=== PATIENT | female | born 1955 | race African-American/Black ===

== ENCOUNTER 2016-12-29 05:56 | Day surgery (SDC) | payer OTHER ==
[2016-12-28 12:36] VITALS: BMI 25.6
--- NOTE | 2016-12-29 05:50 | HP ---
DATE OF ADMISSION: 12/29/2016 HISTORY OF PRESENT ILLNESS: This is a 61-year-old black female with previously diagnosed esophageal stricture, status post dilation in the past. She has a very tight fibrotic stricture in the upper esophagus. Dilation was very difficult and had to be dilated gently. Last dilation was done in 06/2016. She did well for a while but now she has recurrent dysphagia. The dysphagia occurs mostly to bread and meat. The patient comes in for EGD and dilatation today. ALLERGIES: None. MEDICAL ILLNESSES: 1. Hypertension. 2. Hyperlipidemia. 3. Eczema. 4. History of lupus which is mild . SOCIAL HISTORY: The patient does not smoke or drink alcohol. PHYSICAL EXAMINATION: VITAL SIGNS: Pulse is 70, blood pressure 130/70. HEENT: Conjunctivae are clear. CARDIOVASCULAR: First and second heart sounds are normal. LUNGS: Clear to auscultation. ABDOMEN: Soft to palpate. No organomegaly. No tenderness. No masses. ADMITTING DIAGNOSES: Dysphagia, previously diagnosed esophageal stricture, status post dilation. PLAN: EGD and dilation. MTDD
[2016-12-29] MEDS ORDERED: Ondansetron HCl/PF 4 MG/2 ML Vial ONE (09:23)
--- NOTE | 2016-12-29 11:32 | OP ---
DATE OF PROCEDURE: 12/29/2016 SURGEON: Chapin Joyce M.D. OPERATIVE PROCEDURE: 1. Esophagogastroduodenoscopy with biopsy. 2. Esophageal dilation over guidewire Savary sizes 30, 33, and 36 Frisian. PREOPERATIVE DIAGNOSES: Dysphagia, esophageal stricture. POSTOPERATIVE DIAGNOSES: 1. A very tight ring-like stricture at the upper esophagus just below the upper esophageal sphincter. 2. Another ring can be visualized through this ring over the distal esophagus. 3. One centimeter size polypoid lesion at the GE junction, lower esophagus. PROCEDURE IN DETAIL: The patient was placed on her left lateral position and was given sedation by the Anesthesia Department. A Pentax video gastroscope under direct vision was passed down the oropharynx, past the upper esophageal sphincter into the upper esophagus. The patient has a very tight ring-like stricture, intact mucosa, just below the upper esophageal sphincter. The ring is very tight and the scope could not be advanced past the ring. However, I could see another distal esophageal ring distally. A Savary guidewire was placed into the stomach under endoscopic control. The scope removed. Over the guidewire, Savary dilators sizes 30, 33, and 36 passed with mild resistance. Post-dilation, the guidewire was removed. The scope was advanced back into the upper esophagus and gently advanced into the stomach. The mucosa showed a tear in the upper esophagus and also over the lower esophagus. There was mild oozing noted. At the GE junction, the patient had a 1 cm size polypoid lesion which was biopsied. The fundus, cardia, gastric body, gastric antrum, no pathology seen. The duodenal bulb, no pathology seen. The stomach was decompressed. The scope was removed and a careful examination of the esophagus without any other problems except for mucosa dilated 2 different times. DISCHARGE PLANNING: This is a 61-year-old female with dysphagia, past history of esophageal stricture. She came in for EGD and dilation. The patient had a very tight stricture of the upper esophagus and also lower esophagus. She underwent dilation. She was found to have a 1 cm size polypoid lesion which were biopsied. RECOMMENDATIONS: 1. The patient advised to stay on a clear liquid diet until tomorrow. 2. Advance diet to full liquid, can have soft diet over the weekend 3. Omeprazole 40 mg a day. 4. The patient was advised to call me if she develops any chest pain, hematochezia, or melena or fever. SHELBI
== END 2016-12-29 06:42 | disposition home or self-care (01) ==
LOC: SDC 05:56
PROVIDERS: ATTEND Internal Medicine Gastroenterology
PROC: 0D758ZZ Dilation of Esophagus, Via Natural or Artificial Opening Endoscopic (ICD-10-PCS; principal; 2016-12-29)
DX: K29.50 Unspecified chronic gastritis without bleeding (principal); R13.10 Dysphagia, unspecified; I10 Essential (primary) hypertension; E78.5 Hyperlipidemia, unspecified; M32.9 Systemic lupus erythematosus, unspecified
CPT/HCPCS: 88305; 88312; 88313; J2405

== ENCOUNTER 2017-01-26 06:41 | Day surgery (SDC) | payer OTHER ==
[2017-01-25 10:42] VITALS: BMI 25.6
--- NOTE | 2017-01-26 04:04 | HP ---
HISTORY OF PRESENT ILLNESS: This is a 61-year-old black female with history of esophageal stricture, status post dilation. The patient had been having difficulty swallowing over the last year or so. The patient had undergone 3 dilatations over the last 12 months, the last one about 2 weeks ago. The patient has a very tight upper esophageal stricture and also over the lower esophageal stricture. S he also is vomiting. The stricture is very tight and very difficult to dilate. The patient underwen t dilation couple of weeks ago and also dilated up to 36 cm in diameter, dysphagia is improved. Amandeep gar, because of tight esophageal stricture, she was advised to have a repeat EGD. ALLERGIES: None. MEDICAL ILLNESSES: 1. Hypertension. 2. Hyperlipidemia. 3. History of lupus. 4. Esophageal stricture for anxiety. SOCIAL HISTORY: The patient does not smoke or drink alcohol. PHYSICAL EXAMINATION: GENERAL: Patient is thin built, appears comfortable. VITAL SIGNS: Pulse is 70, blood pressure is 130/70. HEENT: Conjunctivae are clear. CARDIOVASCULAR: First and second heart sounds normal. LUNGS: Clear to auscultation. ABDOMEN: Soft to palpate. No organomegaly. No tenderness. No masses. Bowel sounds normal. EXTREMITIES: Reveal no edema. ADMITTING DIAGNOSIS: A 61-year-old black female with dysphagia, esophageal stricture. This is a rin y tight and difficult to dilate. She had no dilation on 12/29/2016 and was dilated up to 36 cm in [facility]. The patient was brought in today for repeat EGD and dilation.
--- NOTE | 2017-01-26 10:57 | RAD ---
SINGLE CONTRAST ESOPHOGRAM Indication: Status post upper endoscopy with dilatation. FINDINGS: There is appropriate passage of radiopaque contrast through the esophagus into the stomach without ev idence of abnormal leakage. No abnormal dilatation of the esophagus. IMPRESSION: No evidence of esophageal leak. POS: CHRIS
[2017-01-26] MEDS ORDERED: Lidocaine 1% PF 5 ML VIAL ONE (15:48)
[2017-01-26] MEDS ORDERED: Propofol 200 MG/20 ML VIAL ONE (15:48)
--- NOTE | 2017-01-26 16:01 | OP ---
DATE OF PROCEDURE: 01/26/2017 SURGEON: Chapin Joyce M.D. OPERATIVE PROCEDURES: 1. Esophagogastroduodenoscopy. 2. Esophageal dilation with Savary dilators over the guidewire to size 42 Slovak in diameter. PREOPERATIVE DIAGNOSES: Dysphagia, esophageal stricture. POSTOPERATIVE DIAGNOSES: Dysphagia, esophageal stricture. PROCEDURE IN DETAIL: The patient was placed on the left lateral position and was given sedation by Anesthesia Department. A Pentax video gastroscope under direct vision was passed down the oropharynx, past the GE junction, into the stomach. The patient's esophagus appears to be more open than the last time. Her last dilation was done approximately a month ago. The scope could not be advanced into the stomach. At this time, I was able to traverse esophagus with mild resistance into the stomach. The patient has multiple ring-like esophageal strictures. There was upper esophageal ring and there was also midesophagus and lower esophagus. The mucosa appears intact. A Savary guidewire was placed into the stomach under endoscopic control. As the patient had a previous dilation up to 36 Slovak in diameter I decided to start with a 36 Slovak and go up to 42 Slovak. The 36, 38 and 42 Slovak Savary dilator was passed over the wire with mild resistance. The scope was advanced back in to the stomach. Post-dilation, the scope was advanced back into the stomach. There was a mucosal tear at the upper esophagus and distal esophagus and mid esophagus. There was some mild oozing of blood. There was blood pooling in the fundus and cardia. This was suctioned out. The gastric body, gastric antrum, and duodenum, no pathology. The scope was carefully withdrawn back into the esophagus. Irrigation and suctioning out do not show any active bleeding, but there is mild oozing of blood from multiple levels. The stomach was decompressed and the scope removed. DISCHARGE PLANNING: This is a 61-year-old -Thai female with esophageal stricture, status post multiple dilatations. The patient has had multiple dilations over the last year also. The patient's most recent dilation was done in 12/2016. During the last examination, the dilation was done up to 36 Slovak in diameter. . Post-dilation, there was mild oozing of blood noted. There were no complications noted. DISCHARGE RECOMMENDATIONS: 1. The patient advised a clear liquid diet for the next 24 hours. 2. The patient advised to call me if she develops any chest discomfort, fever, hematemesis, or melena. 3. May start mechanical soft diet tomorrow and advance diet slowly as tolerated. 4. Come back to the clinic in 2 weeks. SHELBI
[2017-01-26] MEDS ORDERED: MD-Gastroview 120 ML BOT ONE (17:36)
== END 2017-01-26 10:54 ==
LOC: SDC 06:41
PROVIDERS: ATTEND Internal Medicine Gastroenterology
PROC: 0D758ZZ Dilation of Esophagus, Via Natural or Artificial Opening Endoscopic (ICD-10-PCS; principal; 2017-01-26)
DX: R13.10 Dysphagia, unspecified (principal); K22.2 Esophageal obstruction; I10 Essential (primary) hypertension; M32.9 Systemic lupus erythematosus, unspecified; Z79.82 Long term (current) use of aspirin; Z79.899 Other long term (current) drug therapy; Z90.710 Acquired absence of both cervix and uterus; Z98.890 Other specified postprocedural states
CPT/HCPCS: 74220; J2001; J2704

== ENCOUNTER 2017-03-01 13:40 | Inpatient (IN) | payer OTHER ==
[2017-03-01] MEDS ORDERED: Ondansetron ODT 4 MG TAB PO PRN (17:33)
[2017-03-01] MEDS ORDERED: Ondansetron HCl/PF 4 MG/2 ML Vial IVP PRN (17:33)
[2017-03-01] MEDS ORDERED: Acetaminophen 325 MG TAB PO PRN (17:33)
[2017-03-01] MEDS ORDERED: Senokot 8.6 MG TAB PO PRN (17:33)
[2017-03-01] MEDS ORDERED: hydrALAZINE 20 MG/ML VIAL SLOW IVP PRN (17:36)
[2017-03-01 18:29] VITALS: BMI 25.5
[2017-03-01] MEDS ORDERED: cefTRIAXone\\ROCEPHIN 1 GM in Sodium Chloride 0.9% 100 ML IVPB SCH (19:15)
--- NOTE | 2017-03-01 19:31 | HP ---
DATE OF ADMISSION: 03/01/2017 PRIMARY CARE PHYSICIAN: Greer Moody M.D. PRIMARY SENIOR IT ARCHITECT: Faizan Craig M.D. CHIEF COMPLAINT: Slurring of speech of 2 days duration. HISTORY OF PRESENT ILLNESS: Patient is a 61-year-old -Maldivian female with hypertension, rheu matoid arthritis, currently on 81 mg aspirin, presented to the emergency room at [facility] with ab ove complaints. Over the last two days, the patient developed slurring of speech that has been progressively getting worse. She did not seek medical attention. She had some numbness in the perioral area that has more or less resolved. No headache, double vision, blurring of vision, facial asymmetry, weakness, numbn ess of any of her extremities reported. She denies any chest pain, palpitations, headache or syncope . No recent immobilization, travel reported. She is compliant with 81 mg aspirin on a daily basis. In the emergency room, initial vital signs showed temperature 97.5, respiration 18, pulse of 77, bloo d pressure 156/90 with O2 saturation 100% on room air. Her initial CT scan of the brain was negative for acute findings. She received aspirin along with Bactrim in the emergency room. Her urinalysis showed 1+ bacteria with 7-10 wbcs, moderate leukocyte esterase. Her EKG showed sinus rhythm with left ventricular hypertrophy. Initial troponins were negative. PAST MEDICAL HISTORY: 1. Hypertension. 2. Rheumatoid arthritis. PAST SURGICAL HISTORY: Reviewed with the patient and none. ALLERGIES: No known drug allergies. CURRENT HOME MEDICATIONS: Plaquenil 200 mg daily, omeprazole 40 mg q.p.m., valsartan/HCTZ 80/12.5 da irineo, aspirin 81 mg daily. SOCIAL HISTORY: Patient currently lives at home with family. No smoking, alcohol or drug use. FAMILY HISTORY: Negative for premature coronary artery disease. REVIEW OF SYSTEMS: The following complete review of systems was negative, unless otherwise mentioned in the HPI or below: Constitutional: Weight loss or gain, ability to conduct usual activities. Sk in: Rash, itching. Eyes: Double vision, pain. ENT/Mouth: Nose bleeding, neck stiffness, pain, te nderness. Cardiovascular: Palpitations, dyspnea on exertion, orthopnea. Respiratory: Shortness of breath, wheezing, cough, hemoptysis, fever or night sweats. Gastrointestinal: Poor appetite, abdom inal pain, heartburn, nausea, vomiting, constipation, or diarrhea. Genitourinary: Urgency, frequenc y, dysuria, nocturia. Musculoskeletal: Pain, swelling. Neurologic/Psychiatric: Anxiety, depressio n. Allergy/Immunologic: Skin rash, bleeding tendency. PHYSICAL EXAMINATION: VITAL SIGNS: As discussed above. GENERAL: A 61-year-old female in no apparent distress. No new focal deficits reported. HEENT: Head, atraumatic, normocephalic, sclerae are anicteric. Moist mucous membrane, no oral lesio n. NECK: Supple, no JVD appreciated. No carotid bruit. LUNGS: Clear to auscultation bilaterally. No wheezing or rales. HEART: S1, S2 present. Regular rate and rhythm. No murmurs, rubs or gallops appreciated. ABDOMEN: Soft, nontender, bowel sounds present. EXTREMITIES: No edema or calf tenderness. NEUROLOGIC: Cranial nerves II-XII were normal on examination. Power was 5/5 in all extremities. Fi yaap-mg-wyql and otet-ed-kliy test was normal. Reflexes were equivocal. Sensation to touch was norm al bilaterally. SKIN: Warm and dry. PSYCHIATRY: The patient is alert, awake, oriented x3. LYMPH NODES: No palpable lymph nodes in the neck. PERIPHERAL VASCULAR: Radial pulses palpable bilaterally. MUSCULOSKELETAL: No joint swelling or tenderness. LABORATORY FINDINGS: CBC showed WBC 3.8 with hemoglobin 12.5, hematocrit 41, and platelet 145. Chem istries sodium 141, potassium 3.8, chloride 106, bicarbonate 23, BUN 9, creatinine 0.76. Troponins w ere normal. CK was 189. BNP was 21.6. Urinalysis as discussed above. EKG by my review as discusse d above. Chest x-ray by my review was negative for infiltrate. CT scan of the brain was negative fo r acute findings. IMPRESSION: 1. Acute cerebrovascular accident. 2. Hypertension with hypertensive heart disease. 3. Rheumatoid arthritis, on Plaquenil. 4. Hypertension with hypertensive heart disease. 5. Urinary tract infection. PLAN: The patient will be monitored in the stroke unit. We will get a stroke workup including MRI o f the brain, carotid Doppler and echocardiogram. Will change aspirin to 325 mg daily. We will consu lt Neurology, Dr. Robertson, who is on-call tomorrow. We will consult Speech Therapy. Empiric antibiot ics for urinary tract infection. We will add urine cultures. Plan of care was discussed with the maricarmen deras in detail. She stated understanding.
--- NOTE | 2017-03-01 21:32 | ULT ---
CAROTID ULTRASOUND: 03/01/17 INDICATION: Acute CVA. FINDINGS: There is scattered mild atherosclerotic calcification of the carotid arteries. PEAK SYSTOLIC VELOCITY (CM/S): Right CCA 74 Left CCA 63 Right ICA 82 Left ICA 52 There is antegrade flow within the visualized bilateral vertebral arteries. IMPRESSION: 1. No hemodynamically significant stenosis of the right internal carotid artery. 2. No hemodynamically significant stenosis of the left internal carotid artery. POS: C
[2017-03-01] MEDS: cefTRIAXone\\ROCEPHIN 1 GM, Syringe 0.4 ML in Sterile Water 9.6 ML SLOW IVP SCH (21:35)
[2017-03-01] MEDS: Famotidine 20 MG TAB PO SCH (21:36)
[2017-03-01] MEDS: Docusate 100 MG CAP PO SCH (21:36)
[2017-03-01] MEDS: Atorvastatin Calcium 10 MG TAB PO SCH (21:36)
--- NOTE | 2017-03-01 22:36 | MRI ---
MRI OF BRAIN WITHOUT IV CONTRAST 03/01/17 HISTORY: Numbness around mouth. FINDINGS: There is artifact seen related to the patient's hair. However, this is a diagnostic exam. There is a focal area of restricted diffusion seen within the right frontal lobe angel radiata consi stent with a small acute white matter infarction. No additional acute infarction is appreciated on th is exam. There are scattered punctate and patch areas of increased FLAIR and T2 weighted signal inten sity in the periventricular white matter which overall is nonspecific but likely attributable to synchronous motor assembler sarah small vessel ischemic changes. There is a small focus of decreased attenuation in the left anterior frontal lobe on the gradient ech o images suggesting sequela from tiny petechial hemorrhage in this region. The septum pellucidum and third ventricle are in the midline. There is mild cerebral volume loss. The ventricular system is normal in size, shape, and position for the degree of sulcal atrophy. Minimal mucosal thickening is seen in the ethmoidal air cells bilaterally and in the right frontoethm oidal recess. There is a rounded focus of increased T2 weighted signal intensity with the correspondi ng decreased T1 weighted signal intensity seen within the right parietal lobe which may represent a s mall focal cavitative lacunar infarction. Appropriate flow voids are demonstrated at the base of the brain. IMPRESSION: 1. Small acute white matter infarction in the right frontal lobe angel radiata. 2. Findings likely attributable to moderate chronic small vessel ischemic changes. 3. Mild cerebral volume loss. 4. Sequela from tiny petechial hemorrhage in the left anterior frontal lobe. 5. Mild sinus disease. POS: PAIGE
[2017-03-02 06:22] LABS: Anion Gap 11 mmol/L (10-20); BUN (Urea Nitrogen) 11 mg/dL (9.8-20.1); Calc. Creatinine Clearance 70 mL/min (70-130); Calcium 9.5 mg/dL (7.8-10.44); Carbon Dioxide 25 mmol/L (23-31); Cardiac Risk 3.2 (Less than 4.5); Chloride 106 mmol/L (98-107); Cholesterol 201 mg/dl (< 200 Desired); Estimated GFR-MDRD 85; Glucose 89 mg/dL (80-115); HDL Cholesterol 62 mg/dL (>60 Neg Risk); LDL Cholesterol, Calculated 128 mg/dL; Magnesium 2.1 mg/dL (1.6-2.6); Phosphorus 3.4 mg/dL (2.3-4.7); Potassium 3.8 mmol/L (3.5-5.1); Sodium 138 mmol/L (136-145); Triglycerides 53 mg/dL (Less than 150)
[2017-03-02 06:42] LABS: Hemoglobin 12.6 g/dL (12.0-16.0); Mean Corpuscular HGB CONC 31.5 g/dL (32.0-36.0); Mean Corpuscular Hemoglobin 25.5 pg (27.0-31.0); Mean Corpuscular Volume 80.7 fl (81.0-99.0); Mean Platelet Volume 7.9 fL (7.4-10.4); Platelet Count 260 thou/uL (130-400); RBC Distribution Width 12.9 % (11.5-14.5); Red Blood Cell (RBC) Count 4.94 mill/uL (4.20-5.40); White Blood Cell (WBC) Count 2.9 thou/uL (4.8-10.8)
[2017-03-02 06:43] LABS: Eosinophils 3 % (0-10); Lymphocytes 26 % (21-51); MDiff Complete? YES; Monocytes 13 % (0-10); Neutrophil 58 % (42-75)
[2017-03-02 06:51] LABS: Folate (Folic Acid) 13.4 ng/mL (7.0-31.4)
[2017-03-02] MEDS: Docusate 100 MG CAP PO SCH ×2 (08:36→20:52)
[2017-03-02] MEDS: Aspirin 325 mg Enteric Coated Tablet PO SCH (08:36)
[2017-03-02] MEDS: Valsartan 80 MG TAB PO SCH (08:36)
[2017-03-02] MEDS: Hydroxychloroquine Sulfate 200 MG TAB PO SCH (08:36)
[2017-03-02] MEDS: Famotidine 20 MG TAB PO SCH ×2 (08:36→20:52)
[2017-03-02] MEDS ORDERED: Enoxaparin Sodium 40 MG/0.4 ML SYRINGE SC SCH (09:00)
[2017-03-02] MEDS: Hydrochlorothiazide 25 MG TAB PO SCH (09:42)
--- NOTE | 2017-03-02 13:37 | CON ---
DATE OF CONSULTATION: 03/02/2017 CHIEF COMPLAINT: Slurred speech. HISTORY OF PRESENT ILLNESS: Patient is a very pleasant 61-year-old - Micronesian lady who is right-handed. She reports she has prior history of hypertension and lately she has had fluctuations of her blood pressure. Her sister who is in the room reports that her blood pressures have gone up even to 180s in the past. She reports she developed slurred speech on Sunday and checked her blood pressure, systolic was in the 120s and diastolic was in the 70s and she continued on and went to work on Sunday and yesterday, she was noted to have slurred speech, was sent to her primary care doctor's office who then sent her to the hospital. She did not have any extremity weakness with this episode or sensory symptoms or any cerebellar symptoms. She did not have any vision symptoms as well. Her medical record states she had blood pressures of 156/90 on arrival to the ER and she had mild 1+ bacteria in her urine. PAST MEDICAL HISTORY: She has hypertension, rheumatoid arthritis. PAST SURGICAL HISTORY: She reports none. She has not had any major surgeries. ALLERGIES: No known drug allergies. MEDICATIONS: At home, she takes Plaquenil, omeprazole, valsartan, and aspirin. SOCIAL HISTORY: She lives with her family. She does not smoke or drink. She works time clock repairer. FAMILY HISTORY: There is positive family history of hypertension in many members of the family and also stroke in her family members, mainly her father and brother. REVIEW OF SYSTEMS: Pulmonary: Normal. Cardiac: No chest pain. Gastrointestinal: No history of any stomach problems or any difficulties, no nausea or vomiting. Genitourinary: Negative for any dysuria. Hematological: Negative for bleeding or clotting disorders. Skin: Negative for any itching or lesions. Neurologic: Positive for slurred speech. LABORATORY RESULTS: White count 2.9, hemoglobin 12.6, hematocrit 39.9, platelets 260. Sodium 138, potassium 3.8, chloride 106, bicarbonate 25, BUN 11 , creatinine 0.82. Cholesterol 201. LDL cholesterol 128, HDL cholesterol 62. Vitamin B12 276, folate 13.4. TSH third generation is 1. Her MRI of the brain performed on 03/01/2017 showed small acute white matter infarct in the right frontal lobe, angel radiata and she also has small focus of decreased attenuation in the left anterior frontal lobe on the gradient, echo images suggesting sequela of tiny petechial hemorrhage in that area and she had some mild cerebral volume loss, mild sinus disease. Her carotid Dopplers were also performed on 03/01/2017 and there is no hemodynamically significant stenosis of the internal carotid arteries. Echocardiogram is pending at the time of this dictation. PHYSICAL EXAMINATION: VITAL SIGNS: Blood pressure is 139/76, temperature 98.7, pulse 73, respiratory rate 18. GENERAL APPEARANCE: Very thin built lady who is pleasant. CHEST: Clear vesicular breathing. CARDIOVASCULAR: S1, S2 heard, and she had a systolic murmur in the aortic area and also diastolic murmur in the pulmonary area. No transmission to carotids. ABDOMEN: Soft, nontender, no organomegaly noted. NEUROLOGICAL: Higher intellectual function is normal. Normal orientation to time, place and person, appropriate conversation. Cranial nerves II through XII normal. Normal extraocular movements. Pupils reactive to light and accommodation. Extraocular movements intact. Sensory: Sensation of face bilaterally intact. Tongue midline, no atrophy noted. Normal elevation of palate. Motor examination: Bulk normal, tone normal and strength 5/5 in iliopsoas, hamstrings, quadriceps, ankle dorsiflexion, plantar flexion, deltoid , biceps, triceps, wrist extension/flexion, finger extension and flexion bilaterally. Deep tendon reflexes 2+ throughout in upper and lower extremities and sensory exam normal to touch, pinprick, proprioception, vibration, and temperature bilaterally. Cerebellar exam: [id number] and [id number]-lu-[id number] was normal. Gait not tested. IMPRESSION: Patient is a 61-year-old lady with history of slurred speech. She has been having some fluctuations of her blood pressure recently with range varying from 120 systolic to 180 systolic. She has family history of strokes in her immediate family members. She is on aspirin 81 mg per day. Her neurological examination is normal. Her MRI report was reviewed and there seemed to be more small vessel strokes secondary to hypertension. At this time , she has an echocardiogram pending. Her Carotid Doppler is negative. Clinically, she reports that her speech is 90% back to normal. Her neurological exam is essentially normal. Clinical diagnosis is consistent with acute stroke secondary to hypertension and this is a microvascular ischemic event. RECOMMENDATIONS: Please complete echocardiogram due to presence of murmur on auscultation and also would complete her stroke workup. Agree with addition of statin for stroke prophylaxis. We can increase her aspirin to 325 mg per day and whenever she is medically stable, she can be discharged home once her workup is complete. Please call if you have any further questions. SHELBI
[2017-03-02] MEDS: Cyanocobalamin (Vitamin B-12) 1,000 MCG TAB PO SCH (18:33)
--- NOTE | 2017-03-02 20:31 | PDOC.PN ---
- Subjective Encounter Start Date: 03/02/17 Encounter Start Time: 10:00 Patient seen and examined. No new complaints. No overnight events. No new focal deficits. Speech improving. - Objective Resuscitation Status: Resuscitation Status FULL:Full Resuscitation MAR Reviewed: Yes Vital Signs & Weight: Vital Signs (12 hours) Temp Pulse Resp BP Pulse Ox 03/02/17 19:49 98.6 F 80 16 121/70 97 03/02/17 16:20 98.1 F 70 16 122/72 98 03/02/17 11:57 98.7 F 73 18 139/76 100 03/02/17 08:38 98.9 F 78 18 119/70 99 03/02/17 08:36 98.9 F 78 18 99 Weight Weight 139 lb 9.6 oz Result Diagrams: 03/02/17 05:30 03/02/17 05:30 Radiology Reviewed by me: No (Carotid - neg) EKG Reviewed by me: Yes (Tele SR) Phys Exam - Physical Examination Constitutional: NAD Respiratory: no wheezing, no rales, no rhonchi Cardiovascular: RRR, no rub no heaves/pulsations Gastrointestinal: soft, non-tender, no distention, positive bowel sounds Musculoskeletal: no edema Neurological: non-focal, normal sensation, moves all 4 limbs Psychiatric: normal affect, A&O x 3 Dx/Plan - Plan speech therapy, DVT proph w/lovenox, DVT proph w/SCDs IMPRESSION: 1. Acute cerebrovascular accident. 2. Hypertension with hypertensive heart disease. 3. Rheumatoid arthritis, on Plaquenil. 4. Hypertension with hypertensive heart disease. 5. Urinary tract infection - no urine cultures sent from ER prior to Atbx PLAN: * Cont ASA 325 mg per Neuro - Neuro input appreciated * Carotid negative * Echo pending * No outpt Speech therapy needed as outpt * DC later today if Echo report available - or in AM * Cont to monitor * Change Atbx to PO at dc * Pharmacy added * Cont to monitor Review of Systems - Review of Systems Cardiovascular: negative: chest pain, palpitations, orthopnea, paroxysmal nocturnal dyspnea, edema, light headedness Gastrointestinal: negative: Nausea, Vomiting, Abdominal Pain, Diarrhea, Constipation, Melena, Hematochezia - Medications/Allergies Allergies/Adverse Reactions: Allergies Allergy/AdvReac Type Severity Reaction Status Date / Time No Known Allergies Allergy Verified 01/25/17 10:43 Medications: Current Medications Acetaminophen (Tylenol) 650 mg PO Q4H PRN PRN Reason: Headache/Fever or Pain Aspirin (Ecotrin) 325 mg PO DAILY [facility] Last Admin: 03/02/17 08:36 Dose: 325 mg Atorvastatin Calcium (Lipitor) 10 mg PO HS [facility] Last Admin: 03/01/17 21:36 Dose: 10 mg Cyanocobalamin (Vitamin B-12) 1,000 mcg PO DAILY [facility] Last Admin: 03/02/17 18:33 Dose: Not Given Docusate Sodium (Colace) 100 mg PO BID [facility] Last Admin: 03/02/17 08:36 Dose: 100 mg Enoxaparin Sodium (Lovenox) 40 mg SC 2100 [facility] Famotidine (Pepcid) 20 mg PO BID [facility] Last Admin: 03/02/17 08:36 Dose: 20 mg Hydralazine HCl (Apresoline) 10 mg SLOW IVP Q4H PRN PRN Reason: SBP Greater Than 180 Hydrochlorothiazide (Hydrochlorothiazide) 12.5 mg PO DAILY [facility] Last Admin: 03/02/17 09:42 Dose: Not Given Hydroxychloroquine Sulfate (Plaquenil) 200 mg PO QAM [facility] Last Admin: 03/02/17 08:36 Dose: 200 mg Ceftriaxone Sodium 1 gm/ (Syringe 0.4 ml/ Sterile Water) 10 mls @ 120 mls/hr SLOW IVP 1999 [facility] Last Admin: 03/01/17 21:35 Dose: 10 mls Ondansetron HCl (Zofran Odt) 4 mg PO Q6H PRN PRN Reason: Nausea/Vomiting Ondansetron HCl (Zofran) 4 mg IVP Q6H PRN PRN Reason: Nausea/Vomiting Pantoprazole Sodium (Protonix) 40 mg PO DAILY [facility] Last Admin: 03/02/17 08:36 Dose: 40 mg Senna (Senokot) 2 tab PO HSPRN PRN PRN Reason: Constipation Sodium Chloride (Flush - Normal Saline) 10 ml IVF PRN PRN PRN Reason: Saline Flush Last Admin: 03/01/17 21:35 Dose: 10 ml Valsartan (Diovan) 80 mg PO DAILY [facility] Last Admin: 03/02/17 08:36 Dose: 80 mg
[2017-03-02] MEDS: cefTRIAXone\\ROCEPHIN 1 GM, Syringe 0.4 ML in Sterile Water 9.6 ML SLOW IVP SCH (20:51)
[2017-03-02] MEDS: Atorvastatin Calcium 10 MG TAB PO SCH (20:52)
[2017-03-03] MEDS: Aspirin 325 mg Enteric Coated Tablet PO SCH (08:11)
[2017-03-03] MEDS: Docusate 100 MG CAP PO SCH ×2 (08:11→20:44)
[2017-03-03] MEDS: Valsartan 80 MG TAB PO SCH (08:11)
[2017-03-03] MEDS: Cyanocobalamin (Vitamin B-12) 1,000 MCG TAB PO SCH (08:11)
[2017-03-03] MEDS: Hydroxychloroquine Sulfate 200 MG TAB PO SCH (08:11)
[2017-03-03] MEDS: Hydrochlorothiazide 25 MG TAB PO SCH (08:11)
[2017-03-03] MEDS: Famotidine 20 MG TAB PO SCH ×2 (08:11→20:44)
--- NOTE | 2017-03-03 10:41 | PDOC.PN ---
- Subjective Encounter Start Date: 03/03/17 Encounter Start Time: 10:40 Subjective: feels well. no new events.no weakness,PULLIAM,paraesthesias -: speech back to baseline - Objective Resuscitation Status: Resuscitation Status FULL:Full Resuscitation MAR Reviewed: Yes Vital Signs & Weight: Vital Signs (12 hours) Temp Pulse Resp BP BP Pulse Ox 03/03/17 08:00 98.5 F 72 16 03/03/17 07:44 98.5 F 72 16 116/76 98 03/03/17 04:00 98.5 F 66 20 120/70 97 03/02/17 23:42 97.8 F 79 16 121/68 98 Weight Weight 139 lb 9.6 oz I&O: 03/02/17 03/03/17 03/04/17 06:59 06:59 06:59 Intake Total 240 Balance 240 Result Diagrams: 03/02/17 05:30 03/02/17 05:30 Radiology Reviewed by me: Yes EKG Reviewed by me: Yes Phys Exam - Physical Examination Constitutional: NAD HEENT: PERRLA, moist MMs, sclera anicteric, oral pharynx no lesions Neck: no nodes, no JVD, supple, full ROM Respiratory: no wheezing, no rales, no rhonchi, clear to auscultation bilateral Cardiovascular: RRR, no significant murmur, no rub, gallop Gastrointestinal: soft, non-tender, no distention, positive bowel sounds Musculoskeletal: no edema, pulses present Neurological: non-focal, normal sensation, moves all 4 limbs Psychiatric: normal affect, A&O x 3 Skin: no rash Dx/Plan (1) CVA (cerebral vascular accident) Code(s): I63.9 - CEREBRAL INFARCTION, UNSPECIFIED Status: Acute (2) UTI (urinary tract infection) Status: Acute (3) HTN (hypertension) Code(s): I10 - ESSENTIAL (PRIMARY) HYPERTENSION Status: Acute (4) Rheumatoid arthritis Code(s): M06.9 - RHEUMATOID ARTHRITIS, UNSPECIFIED Status: Acute - Plan out of bed/ambulate, DVT proph w/SCDs cont ASA,statain. -: ECHO pending-if NL ,will dc home. -: not requiring HH .speech back to baseline.HD stable. -: BP controlled * . Review of Systems - Review of Systems Constitutional: negative: fever, chills, sweats, weakness, malaise, other ENT: negative: Ear Pain, Ear Discharge, Nose Pain, Nose Discharge, Nose Congestion, Mouth Pain, Mouth Swelling, Throat Pain, Throat Swelling, Other Respiratory: negative: Cough, Dry, Shortness of Breath, Hemoptysis, SOB with Excertion, Pleuritic Pain, Sputum, Wheezing Cardiovascular: negative: chest pain, palpitations, orthopnea, paroxysmal nocturnal dyspnea, edema, light headedness, other Gastrointestinal: negative: Nausea, Vomiting, Abdominal Pain, Diarrhea, Constipation, Melena, Hematochezia, Other Genitourinary: negative: Dysuria, Frequency, Incontinence, Hematuria, Retention , Other Musculoskeletal: negative: Neck Pain, Shoulder Pain, Arm Pain, Back Pain, Hand Pain, Leg Pain, Foot Pain, Other Neurological: negative: Weakness, Numbness, Incoordination, Change in Speech, Confusion, Seizures, Other - Medications/Allergies Allergies/Adverse Reactions: Allergies Allergy/AdvReac Type Severity Reaction Status Date / Time No Known Allergies Allergy Verified 01/25/17 10:43 Medications: Current Medications Acetaminophen (Tylenol) 650 mg PO Q4H PRN PRN Reason: Headache/Fever or Pain Aspirin (Ecotrin) 325 mg PO DAILY [facility] Last Admin: 03/03/17 08:11 Dose: 325 mg Atorvastatin Calcium (Lipitor) 10 mg PO HS [facility] Last Admin: 03/02/17 20:52 Dose: 10 mg Cyanocobalamin (Vitamin B-12) 1,000 mcg PO DAILY [facility] Last Admin: 03/03/17 08:11 Dose: 1,000 mcg Docusate Sodium (Colace) 100 mg PO BID [facility] Last Admin: 03/03/17 08:11 Dose: 100 mg Enoxaparin Sodium (Lovenox) 40 mg SC 2100 [facility] Famotidine (Pepcid) 20 mg PO BID [facility] Last Admin: 03/03/17 08:11 Dose: 20 mg Hydralazine HCl (Apresoline) 10 mg SLOW IVP Q4H PRN PRN Reason: SBP Greater Than 180 Hydrochlorothiazide (Hydrochlorothiazide) 12.5 mg PO DAILY [facility] Last Admin: 03/03/17 08:11 Dose: 12.5 mg Hydroxychloroquine Sulfate (Plaquenil) 200 mg PO QAM [facility] Last Admin: 03/03/17 08:11 Dose: 200 mg Ceftriaxone Sodium 1 gm/ (Syringe 0.4 ml/ Sterile Water) 10 mls @ 120 mls/hr SLOW IVP 1999 [facility] Last Admin: 03/02/17 20:51 Dose: 10 mls Ondansetron HCl (Zofran Odt) 4 mg PO Q6H PRN PRN Reason: Nausea/Vomiting Ondansetron HCl (Zofran) 4 mg IVP Q6H PRN PRN Reason: Nausea/Vomiting Pantoprazole Sodium (Protonix) 40 mg PO DAILY [facility] Last Admin: 03/03/17 08:11 Dose: 40 mg Senna (Senokot) 2 tab PO HSPRN PRN PRN Reason: Constipation Sodium Chloride (Flush - Normal Saline) 10 ml IVF PRN PRN PRN Reason: Saline Flush Last Admin: 03/02/17 20:53 Dose: 10 ml Valsartan (Diovan) 80 mg PO DAILY [facility] Last Admin: 03/03/17 08:11 Dose: 80 mg
--- NOTE | 2017-03-03 12:50 | PRG ---
DATE OF SERVICE: 03/03/2017 CHIEF COMPLAINT: Dysarthria. INTERVAL HISTORY: The patient reports her dysarthria has resolved and she is doing well. Currently, she is waiting on completion of her echocardiogram prior to discharge. Her most updated results, edgar marr has pending her echocardiogram. PHYSICAL EXAMINATION: VITAL SIGNS: Her blood pressure 108/67, temperature 98.7, pulse 65, and respiratory rate 16. GENERAL APPEARANCE: Well-built, well-nourished lady, who appears comfortable. CHEST: Clear vesicular breathing. CARDIOVASCULAR: Normal. NEUROLOGIC: Higher intellectual functions are normal. Speech is normal. Strength 5/5 throughout. Cerebellar, Normal [id number]. IMPRESSION: Patient is a 61-year-old lady with dysarthria and small microvascular ischemic stroke. At the time of admission, she is currently stable, waiting on her echocardiogram and she is planned f or discharge. RECOMMENDATIONS: Continue aspirin at 325 mg per day and please call me if you have any further quest ions. I will try to follow up with the patient if she is still in hospital.
[2017-03-03] MEDS: cefTRIAXone\\ROCEPHIN 1 GM, Syringe 0.4 ML in Sterile Water 9.6 ML SLOW IVP SCH (20:43)
[2017-03-03] MEDS: Atorvastatin Calcium 10 MG TAB PO SCH (20:44)
[2017-03-03] MEDS ORDERED: Enoxaparin Sodium 40 MG/0.4 ML SYRINGE SC SCH (21:00)
[2017-03-04 07:48] VITALS: BP 111/64; TEMP 98.6
[2017-03-04] MEDS: Docusate 100 MG CAP PO SCH (08:51)
[2017-03-04] MEDS: Famotidine 20 MG TAB PO SCH (08:51)
[2017-03-04] MEDS: Valsartan 80 MG TAB PO SCH (08:51)
[2017-03-04] MEDS: Hydrochlorothiazide 25 MG TAB PO SCH (08:51)
[2017-03-04] MEDS: Hydroxychloroquine Sulfate 200 MG TAB PO SCH (08:51)
[2017-03-04] MEDS: Cyanocobalamin (Vitamin B-12) 1,000 MCG TAB PO SCH (08:52)
[2017-03-04] MEDS: Aspirin 325 mg Enteric Coated Tablet PO SCH (08:52)
--- NOTE | 2017-03-04 09:23 | PDOC.PN ---
- Subjective Encounter Start Date: 03/04/17 Encounter Start Time: 09:21 Patient seen at bedside. No overnight events, no new complaints - Objective Resuscitation Status: Resuscitation Status FULL:Full Resuscitation MAR Reviewed: Yes Vital Signs & Weight: Vital Signs (12 hours) Temp Pulse Resp BP BP Pulse Ox 03/04/17 07:47 98.6 F 75 16 111/64 100 03/04/17 04:32 98.2 F 69 16 118/68 100 03/04/17 00:00 72 18 108/69 98 Weight Weight 139 lb 9.6 oz I&O: 03/03/17 03/04/17 03/05/17 06:59 06:59 06:59 Intake Total 2240 240 Balance 2240 240 Result Diagrams: 03/02/17 05:30 03/02/17 05:30 Phys Exam - Physical Examination Constitutional: NAD HEENT: moist MMs Neck: no JVD Respiratory: clear to auscultation bilateral Cardiovascular: RRR Gastrointestinal: soft Musculoskeletal: pulses present Neurological: moves all 4 limbs Psychiatric: A&O x 3 Dx/Plan (1) CVA (cerebral vascular accident) Code(s): I63.9 - CEREBRAL INFARCTION, UNSPECIFIED Status: Acute (2) HTN (hypertension) Code(s): I10 - ESSENTIAL (PRIMARY) HYPERTENSION Status: Chronic (3) Rheumatoid arthritis Code(s): M06.9 - RHEUMATOID ARTHRITIS, UNSPECIFIED Status: Chronic (4) UTI (urinary tract infection) Status: Suspected - Plan cont current plan of care, continue antibiotics, PT/OT, DVT proph w/SCDs * D/C home. * ASA 325 mg * Statin * Ciprofloxacin
--- NOTE | 2017-03-04 11:30 | PRG ---
DATE OF SERVICE: 03/04/2017 CHIEF COMPLAINT: Slurred speech and stroke. INTERVAL HISTORY: The patient has done well since her initial admission and she is planned for disch arge today. She reports she is almost back to her normal self. A stroke workup has been completed a nd she has cholesterol levels of 201, LDL 128, HDL 62, TSH 1.0, B12 of 276, folate 13, and her MRI re ports were noted earlier. Echocardiogram shows diastolic dysfunction, mitral regurgitation, tricuspi d regurgitation and an ejection fraction of 60% to 65%. PHYSICAL EXAMINATION: VITAL SIGNS: Her blood pressure is 111/64, pulse is 75, temperature is 98.6 and respiratory rate is 16. GENERAL APPEARANCE: A thin-built, well-nourished lady, appears comfortable. NEUROLOGICAL: Higher intellectual functions are normal. Cranial nerves II-XII normal. Normal extra ocular movements. No facial asymmetry. Tongue midline, no atrophy noted. Motor: Bulk normal, tone normal. Strength is 5/5 in upper and lower extremities. Gait normal. IMPRESSION: The patient is a 61-year-old lady with microvascular ischemic event in the right frontal lobe, it is a small acute white matter infarct in the angel radiata and she has been stable since a dmission and at this time she is being discharged. RECOMMENDATIONS: She can go home on aspirin 325 mg per day and she needs to follow up with her physi andrei.
--- NOTE | 2017-03-04 11:51 | PRG ---
DATE OF SERVICE: 03/04/2017 CHIEF COMPLAINT: Dysarthria. INTERVAL HISTORY: The patient reports she is doing quite well today and she is ready to go home and is being discharged. She states she is close to normal with her recovery from this event. REPORTS: No additional reports are in the chart. PHYSICAL EXAMINATION: VITAL SIGNS: Blood pressure is 111/64, temperature 98.6, pulse 75, respiratory rate 16. CHEST: Clear vesicular breathing. CARDIOVASCULAR: She has a heart murmur. NEUROLOGIC: Higher intellectual functions are normal. Cranial nerves II through XII normal. Normal extraocular movements. No asymmetry of face. Normal sensation of face. Tongue midline, no atrophy noted. Motor exam: Bulk normal, tone normal. Strength is normal. Cerebellar: Normal finger-to-n ose and [id number]. Gait normal. IMAGING RESULTS: Echocardiogram shows ejection fraction 60%-65% and grade 1/3 diastolic dysfunction, trace mitral regurgitation, mild tricuspid regurgitation. IMPRESSION: Patient with acute small vessel ischemic stroke in the angel radiata in the right front al area. At this time, she is stable and she is being discharged. RECOMMENDATIONS: Okay to discharge the patient on aspirin full dose and she can see her primary care doctor.
--- NOTE | 2017-03-04 17:25 | DIS ---
DISCHARGE DISPOSITION: Home. DATE OF ADMISSION: 03/01/2017. DATE OF DISCHARGE: 03/04/2017. DISCHARGE FOLLOWUP: With her PCP as an outpatient. DISCHARGE DIAGNOSES: 1. Ischemic cerebrovascular accident with white matter infarction in the right frontal lobe angel r adiata. 2. Hypertension. 3. Hyperlipidemia. 4. Urinary tract infection. 5. History of rheumatoid arthritis. DISCHARGE MEDICATIONS: 1. Aspirin 325 mg p.o. daily. 2. Atorvastatin 10 mg p.o. at bedtime as needed. 3. Ciprofloxacin 500 mg p.o. b.i.d. for the next 2 days. 4. Plaquenil 20 mg p.o. daily. 5. Valsartan/hydrochlorothiazide 80/12.5 mg 1 tablet daily. INPATIENT CONSULTATION: Dr. Robertson, Neurology. INPATIENT PROCEDURES: None. INPATIENT RADIOGRAPHIC EXAMINATIONS: 1. MRI of the brain revealed a small acute white matter infarction in the right frontal lobe angel radiata. 2. Echocardiogram which revealed an EF visualized 60-65% with grade I-III diastolic dysfunction. Th e aortic valve was structurally normal. No evidence of pericardial effusion. 3. Carotid Dopplers which revealed no hemodynamic significant stenosis in either internal carotid ar teries. 4. CT of the brain without contrast which revealed no acute intracranial abnormalities. 5. Chest x-ray which revealed no acute intrathoracic abnormality. BRIEF HOSPITAL COURSE: Ms. Nikhil Stroud is a 61-year-old female with past medical history of hyper tension, rheumatoid arthritis who presented to the emergency room complaining of slurring speech with 2 days' duration. She [facility] where initial CT scan was n egative. She then presented to [facility] for a higher level of care and was subsequently placed int o observation onto the stroke floor. She was initially placed on observation for TIA workup and to r ule out a CVA. She was placed on aspirin therapy as well as statin therapy. An MRI of the brain rev ealed small acute white matter infarction in the right frontal lobe angel radiata. Neurology was co nsulted who recommended the patient to increase her dosage of aspirin 325 mg p.o. daily. The patient 's slurring of speech has resolved. She did have pyuria and was placed on Rocephin for this. She wi ll be discharged on ciprofloxacin. Patient is doing much better. She worked with PT, OT as well as Speech Therapy. She is back to her baseline with no slurring of speech. She has been started on sta tin therapy as well as high dose of aspirin. Her blood pressure has been controlled. She will be di scharged home later today in stable condition. We will follow up with her PCP with the geovanny hansen. DISCHARGE DIET: Heart healthy. ACTIVITY: As tolerated. RESTRICTIONS: None. CODE STATUS: FULL CODE. ALLERGIES: No known drug allergies. I have explained all this to the patient at bedside. She is agreeable to the plan of discharge. All questions have been answered. Total time required to prepare for discharge 34 minutes.
[2017-03-04] MEDS ORDERED: Ciprofloxacin 500 MG TAB PO SCH (20:00)
== END 2017-03-04 10:55 | disposition home or self-care (01) | DRG 65 ==
LOC: ERS 13:40 → 2SE 15:04
PROVIDERS: ADMIT Internal Medicine; ATTEND Internal Medicine
DX: I63.9 Cerebral infarction, unspecified (principal); N39.0 Urinary tract infection, site not specified; I11.9 Hypertensive heart disease without heart failure; M06.9 Rheumatoid arthritis, unspecified; Z82.3 Family history of stroke
CPT/HCPCS: 36415; 70551; 80048; 80061; 82607; 82746; 83735; 84100; 84443; 85025; 93306; 93880; 99285; A4216; G8996-GN-CH; G8997-GN-CH; J0360; J0696; J1650

== ENCOUNTER 2017-08-07 08:01 | Outpatient (CLI) | payer OTHER | END 2017-08-07 08:02 | disposition home or self-care (01) | LOC: BICMAMMO 08:01 | PROVIDERS: ATTEND Family Medicine | DX: Z12.31 Encounter for screening mammogram for malignant neoplasm of breast (principal) | CPT/HCPCS: 77063; 77067 ==

== ENCOUNTER 2018-10-23 11:03 | Outpatient (CLI) | payer OTHER ==
--- NOTE | 2018-10-23 11:52 | MMO ---
Bilateral MAMMO Bilat Screen [facility]. CLINICAL HISTORY: Patient is 63 years old and is seen for screening. The patient has no family history of breast cancer. The patient has no personal history of cancer. VIEWS: The views performed were: bilateral craniocaudal with tomosynthesis and bilateral mediolateral oblique with tomosynthesis. FILMS COMPARED: The present examination has been compared to prior imaging studies performed at [facility] on 03/31/2010, 04/02/2012 and 10/06/2014, and at [facility] on 08/07/2017. MAMMOGRAM FINDINGS: There are scattered fibroglandular densities. There are no suspicious masses, suspicious calcifications, or new areas of architectural distortion. IMPRESSION: THERE IS NO MAMMOGRAPHIC EVIDENCE OF MALIGNANCY. A ROUTINE FOLLOW-UP MAMMOGRAM IN 1 YEAR IS RECOMMENDED. THE RESULTS OF THIS EXAM WERE SENT TO THE PATIENT. ACR BI-RADS Category 1 - Negative MAMMOGRAPHY NOTE: 1. A negative mammogram report should not delay a biopsy if a dominant of clinically suspicious mass is present. 2. Approximately 10% to 15% of breast cancers are not detected by mammography. 3. Adenosis and dense breasts may obscure an underlying neoplasm. Reported by: MARIELOS VARGAS MD Electonically Signed: [id number]
== END 2018-10-23 11:04 | disposition home or self-care (01) ==
LOC: BICMAMMO 11:03
PROVIDERS: ATTEND Family Medicine
DX: Z12.31 Encounter for screening mammogram for malignant neoplasm of breast (principal)
CPT/HCPCS: 77063; 77067

== ENCOUNTER 2019-03-28 06:01 | Day surgery (SDC) | payer OTHER ==
[2019-03-27 15:20] VITALS: BMI 21.9
--- NOTE | 2019-03-28 07:37 | HP ---
SUBJECTIVE: This is a 63-year-old female with difficulty swallowing_ recently. The patient is known to have esophageal stricture and status post dilation in 2018. She started having dysphagia 2 weeks ago. She complains of dysphagia to solid foods like meat and bread. They tend to hand up there. She had no odynophagia. She has been losing weight, has lost about 19 pounds. she had a very tight upper esophageal stricture and took us some time to open up the stricture the last time. The patient comes for EGD and dilation because of the difficulty with swallowing.. ALLERGIES: NONE. MEDICAL ILLNESSES: 1. Hypertension. 2. Hyperlipidemia. 3. Esophageal stricture 4. Rheumatoid arthritis. 5. Chronic acid reflex. PHYSICAL EXAMINATION: GENERAL: She is very fragile looking female CARDIOVASCULAR: normal heart sounds LUNGS: Clear to auscultation. ABDOMEN: soft, non tender, no masses . ADMITTING DIAGNOSIS: A 63-year-old female with dysphagia. The patient had a very tight upper esophageal stricture in the past, and had dilation in 2018 and has done well since that time. She does know the risks involving perforation, bleeding, sepsis, aspiration and fully understands the risks and benefits PLAN: EGD and dilation. Job ID: [id number] [facility]
[2019-03-28] MEDS ORDERED: Fentanyl 100 MCG/2 ML VIAL ONE (08:18)
[2019-03-28] MEDS ORDERED: PROPOFOL 200 MG/20 ML VIAL ONE (11:16)
--- NOTE | 2019-03-28 15:25 | OP ---
DATE OF PROCEDURE: 03/28/2019 PROCEDURES PERFORMED: 1. Esophagogastroduodenoscopy. 2. Esophageal dilation with Savary dilator, sizes 11-Bahamian, 12-Bahamian and 12.8-Bahamian over a guidewire under fluoroscopic guidance. PREOPERATIVE DIAGNOSIS: Esophageal stricture. POSTOPERATIVE DIAGNOSES: 1. Esophageal stricture at the distal upper esophagus just below the upper esophageal sphincter and multiple ring-like stricture throughout the esophagus all the way to the gastroesophageal junction. 2. Normal stomach and duodenum. DESCRIPTION OF PROCEDURE: The patient was placed on the fluoroscopy table and was given sedation by Anesthesia Department. The patient was put on her left lateral position. As she has no teeth, no bite block was used. A Pentax video gastroscope under direct vision was passed down the oropharynx into the upper esophagus. The patient had a ring-like stricture, which was quite tight at the upper esophagus just below the upper esophageal sphincter. The scope could not be advanced past the area. Fluoroscopy was used to guide and place a guidewire into the stomach. Throughout the procedure, the fluoroscopy was used to confirm the right position. The scope was removed. A Savary size 11-Bahamian and subsequently a 12-Bahamian and 12.8-Bahamian dilator was passed over the guidewire under fluoroscopic guidance. The fluoroscopy was used throughout the procedure to make sure the guidewire was in place and the dilator was advanced properly. There was minimal resistance encountered. Also in dilatation, the scope was advanced into the stomach without much difficulty. The patient appeared to have a mucosal tear at the upper esophageal area. There was mild oozing of blood noted. The patient had multiple ring-like areas throughout the esophagus. The scope was advanced into the stomach. Retroflexion failed to show any pathology in fundus or cardia. In the gastric body and gastric antrum, no lesion was seen. In the duodenum, no lesion was seen. Unfortunately, no picture could be taken because of malfunction of the scope. Picture was obtained using the cellphone. The stomach was decompressed and the scope was carefully withdrawn. Careful examination of the esophagus showed an esophageal mucosal tear at the upper esophagus and also over the lower esophagus. No other complications were noted. The stomach was decompressed and the scope was removed. DISCHARGE PLANNING: This is a 63-year-old female with esophageal stricture with previous dilatation. The patient has had dilation 2 years ago. The patient came with dysphagia and underwent EGD and dilation. The dilation was carried out using fluoroscopy to confirm proper position of the guidewire and proper direction of the advancement of the dilator. The patient did well postprocedure and being discharged. DISCHARGE INSTRUCTIONS: 1. The patient is advised to stay on a clear liquid diet today for the rest of the day. 2. Advance diet slowly to full liquid diet tomorrow and then mechanical soft diet the following day. She is advised to call me if there is any chest pain, fever, hematemesis, or melena. 3. We will repeat EGD and dilation in the next 7 to 10 days. Job ID: [id number]
== END 2019-03-28 10:25 | disposition home or self-care (01) ==
LOC: SDC 06:01
PROVIDERS: ATTEND Internal Medicine Gastroenterology
PROC: 0D758ZZ Dilation of Esophagus, Via Natural or Artificial Opening Endoscopic (ICD-10-PCS; principal; 2019-03-28)
DX: K22.2 Esophageal obstruction (principal); K21.9 Gastro-esophageal reflux disease without esophagitis; I10 Essential (primary) hypertension; E78.5 Hyperlipidemia, unspecified; M06.9 Rheumatoid arthritis, unspecified; Z79.82 Long term (current) use of aspirin; Z79.899 Other long term (current) drug therapy
CPT/HCPCS: J2704; J3010

== ENCOUNTER 2019-04-11 05:58 | Day surgery (SDC) | payer OTHER ==
[2019-04-10 11:34] VITALS: BMI 21.9
--- NOTE | 2019-04-11 06:21 | HP ---
HISTORY OF PRESENT ILLNESS: A 63-year-old female with esophageal stricture, status post esophageal dilation 2 weeks ago. The patient had a very tight stricture of the upper esophagus and had esophageal dilation to 42 fr_. the patient was brought in back today for repeat dilatation. ALLERGIES: NONE. SOCIAL HISTORY: The patient does not smoke or drink alcohol. MEDICAL ILLNESSES: Rheumatoid arhthritis.Hyperlipidemia,_ hypertension - esophageal stricture, status post dilation. PHYSICAL EXAMINATION: GENERAL: She is thin built, appears comfortable.Pulse 72.BP 120/80 conjunctivae are clear. NECK: Supple. No adenitis or thyromegaly. CARDIOVASCULAR SYSTEM: First and second heart sounds are normal. LUNGS: Clear. ABDOMEN: _soft, non tender, no organomegaly noted. EXTREMITIES: Reveal no edema. ADMIT DIAGNOSES: Esophageal stricture. She underwent dilation under fluoroscopy. The patient is brought back today for repeat esophageal dilatation. Job ID: [id number] [facility]
--- NOTE | 2019-04-11 10:09 | OP ---
DATE OF PROCEDURE: 04/11/2019 OPERATIVE PROCEDURE: 1. Esophagogastroduodenoscopy. 2. Esophageal dilation with Savary, sizes 33, 36 and 40-Kosovan. This corresponds to 11 and 12 and 12.8 mm. PREOPERATIVE DIAGNOSIS: Dysphagia, esophageal stricture. POSTOPERATIVE DIAGNOSES: 1. Very tight ring-like stricture of the esophagus. 2. Multiple ring-like strictures below the upper esophagus. DESCRIPTION OF PROCEDURE: The patient was placed on fluoroscopic table and was given sedation by Anesthesia Department. A bite block was placed. A Pentax video gastroscope under direct vision passed down the oropharynx past the upper esophageal sphincter into the esophagus. The patient had a very tight stricture as before at the upper esophagus. The mucosa appears intact. The same findings are noted on the last examination. The scope could not be advanced past the stricture into the midesophagus. A Savary guidewire was placed under fluoroscopic guidance into the stomach. Fluoroscopy was used throughout the procedure to monitor and guide the direction. The scope was removed. A Savary dilator size 33 which corresponded to 11 mm and then 12 mm and 12.8 mm passed over the guidewire under fluoroscopic control . There was mild to moderate resistance encountered with passage of dilator. Post dilatation, the guidewire and dilator removed. The scope easily advanced into the stomach. The patient had mucosal tear of the upper esophagus, midesophagus and distal esophagus. Mild oozing of blood noted. No other complication. Retroflexion failed to show any pathology in fundus or cardia. In the gastric body, gastric antrum, and duodenum, no lesions. The stomach decompressed. The scope was carefully withdrawn and at least three areas of mucosal tear noted corresponding to the strictured area. She had the same findings during the last examination. The scope was removed. DISCHARGE PLANNING: This is a 63-year-old female with a very tight esophageal stricture, came for EGD and dilation 2 weeks ago. She underwent dilation to size 12.8 mm during last exam. The patient brought back today for repeat dilation. Today, patient had same thing like last time. The esophageal stricture was very tight and the scope could not be advanced into the stomach. The dilation was done using the same dilators as before. This was done with 11, 12, and 12.8 mm Savary dilators. The patient did well postprocedure and will be discharged. DISCHARGE INSTRUCTIONS: 1. The patient was advised to stay on clear liquid diet today. 2. Stay on PPI. 3. Advance diet slowly to full liquid diet and soft diet over the weekend. The patient was advised to call me if there is any fever, any chest discomfort, nausea, vomiting, hematemesis. In the absence of the above symptoms, she will come back to me next week for a followup visit. Job ID: [id number]
[2019-04-11] MEDS ORDERED: PROPOFOL 200 MG/20 ML VIAL ONE (12:30)
[2019-04-11] MEDS ORDERED: Lidocaine 1% PF 5 ML VIAL ONE (12:30)
== END 2019-04-11 09:15 | disposition home or self-care (01) ==
LOC: SDC 05:58
PROVIDERS: ATTEND Internal Medicine Gastroenterology
PROC: 0D758ZZ Dilation of Esophagus, Via Natural or Artificial Opening Endoscopic (ICD-10-PCS; principal; 2019-04-11)
DX: K22.2 Esophageal obstruction (principal); I10 Essential (primary) hypertension; E78.5 Hyperlipidemia, unspecified; M06.9 Rheumatoid arthritis, unspecified; Z79.82 Long term (current) use of aspirin; Z79.899 Other long term (current) drug therapy
CPT/HCPCS: 74330; J2001; J2704

== ENCOUNTER 2020-02-10 11:45 | Outpatient (CLI) | payer OTHER ==
--- NOTE | 2020-02-10 12:41 | MMO ---
Bilateral MAMMO Bilat Screen [facility]. CLINICAL HISTORY: Patient is 64 years old and is seen for screening. The patient has no family history of breast cancer. The patient has no personal history of cancer. VIEWS: The views performed were: bilateral craniocaudal with tomosynthesis and bilateral mediolateral oblique with tomosynthesis. FILMS COMPARED: The present examination has been compared to prior imaging studies performed at [facility] on 04/02/2012 and 10/06/2014, and at [facility] on 08/07/2017 and 10/23/2018. This study has been interpreted with the assistance of computer-aided detection. MAMMOGRAM FINDINGS: The breasts are heterogeneously dense, which could obscure a lesion on mammography. There are stable benign appearing calcifications seen in both breasts. There are no suspicious masses, suspicious calcifications, or new areas of architectural distortion. IMPRESSION: THERE IS NO MAMMOGRAPHIC EVIDENCE OF MALIGNANCY. A ROUTINE FOLLOW-UP MAMMOGRAM IN 1 YEAR IS RECOMMENDED. THE RESULTS OF THIS EXAM WERE SENT TO THE PATIENT. ACR BI-RADS Category 2 - Benign finding MAMMOGRAPHY NOTE: 1. A negative mammogram report should not delay a biopsy if a dominant of clinically suspicious mass is present. 2. Approximately 10% to 15% of breast cancers are not detected by mammography. 3. Adenosis and dense breasts may obscure an underlying neoplasm. Reported by: MARLY NEAL MD Electonically Signed: [id number]
== END 2020-02-10 11:46 | disposition home or self-care (01) ==
LOC: BICMAMMO 11:45
PROVIDERS: ATTEND Family Medicine
DX: Z12.31 Encounter for screening mammogram for malignant neoplasm of breast (principal)
CPT/HCPCS: 77063; 77067

== ENCOUNTER 2020-05-03 13:36 | Inpatient (IN) | payer OTHER, MEDICARE ==
[2020-05-03 16:26] VITALS: BMI 19.1
[2020-05-03] MEDS ORDERED: Ondansetron PF 4 MG/2 ML Vial IVP PRN (16:43)
[2020-05-03] MEDS ORDERED: Acetaminophen 325 MG TAB PO PRN (16:43)
[2020-05-03] MEDS ORDERED: Sodium Chloride 0.9% 1,000 ML IV SCH (16:45)
[2020-05-03] MEDS ORDERED: Meclizine HCl 25 MG TAB PO PRN (16:45)
[2020-05-03] MEDS ORDERED: hydrALAZINE 20 MG/ML VIAL SLOW IVP PRN (17:03)
[2020-05-03 18:54] LABS: Hemoglobin 13.2 g/dL (12.0-16.0); Mean Corpuscular HGB CONC 32.6 g/dL (32.0-36.0); Mean Corpuscular Hemoglobin 26.7 pg (27.0-31.0); Mean Corpuscular Volume 81.9 fL (78.0-98.0); Mean Platelet Volume 7.8 fL (7.4-10.4); Platelet Count 248 thou/uL (130-400); RBC Distribution Width 12.9 % (11.5-14.5); Red Blood Cell (RBC) Count 4.95 mill/uL (4.20-5.40); White Blood Cell (WBC) Count 4.5 thou/uL (4.8-10.8)
[2020-05-03 18:57] LABS: Anion Gap 14 mmol/L (10-20); BUN (Urea Nitrogen) 8 mg/dL (9.8-20.1); Calc. Creatinine Clearance 62 mL/min (70-130); Calcium 8.8 mg/dL (7.8-10.44); Carbon Dioxide 22 mmol/L (23-31); Chloride 110 mmol/L (98-107); Glucose 88 mg/dL (80-115); Potassium 3.5 mmol/L (3.5-5.1); Sodium 142 mmol/L (136-145)
[2020-05-03 19:25] LABS: Band 2 % (5-11); Eosinophils 1 % (0-10); Lymphocytes 39 % (21-51); MDiff Complete? YES; Monocytes 7 % (0-10); Neutrophil 49 % (42-75); Platelet Morphology Comment Appears Adequate; RBC Morphology Normal; Reactive Lymphocytes 1 % (0-10)
[2020-05-03] MEDS: Famotidine 20 MG TAB PO SCH (20:21)
[2020-05-03] MEDS: Ciprofloxacin 0.2% Otic (0.25ML CONTAINER) EA EAR SCH (20:22)
[2020-05-03] MEDS ORDERED: Atorvastatin Calcium 40 MG TAB PO SCH (21:00)
[2020-05-03] MEDS ORDERED: Aspirin 325 mg Enteric Coated Tablet PO SCH (21:00)
[2020-05-04 04:20] LABS: SARS-CoV-2 PCR by NAA Not Detected (NotDetected)
[2020-05-04 06:19] LABS: #Eosinphils 0.2 thou/uL (0.0-0.7); #Lymphocytes 0.6 thou/uL (1.20-3.40); #Monocytes 0.4 thou/uL (0.11-0.59); #Neutrophils 1.9 thou/uL (1.40-6.50); %Basophils 1.2 % (0.0-1.0); %Eosinophils 5.5 % (0.0-10.0); %Lymphocytes 20.1 % (21.0-51.0); %Neutrophils 61.3 % (42.0-75.0); Hemoglobin 11.5 g/dL (12.0-16.0); Mean Corpuscular HGB CONC 34.1 g/dL (32.0-36.0); Mean Corpuscular Volume 82.2 fL (78.0-98.0); Mean Platelet Volume 7.8 fL (7.4-10.4); Platelet Count 236 thou/uL (130-400); RBC Distribution Width 12.9 % (11.5-14.5); Red Blood Cell (RBC) Count 4.11 mill/uL (4.20-5.40); White Blood Cell (WBC) Count 3.2 thou/uL (4.8-10.8)
[2020-05-04 06:23] LABS: Anion Gap 6 mmol/L (10-20); BUN (Urea Nitrogen) 7 mg/dL (9.8-20.1); Calc. Creatinine Clearance 66 mL/min (70-130); Calcium 8.4 mg/dL (7.8-10.44); Carbon Dioxide 26 mmol/L (23-31); Chloride 112 mmol/L (98-107); Glucose 88 mg/dL (80-115); Potassium 3.5 mmol/L (3.5-5.1); Sodium 140 mmol/L (136-145)
[2020-05-04] MEDS: Famotidine 20 MG TAB PO SCH (08:11)
[2020-05-04] MEDS ORDERED: Hydroxychloroquine Sulfate 200 MG TAB PO SCH (09:00)
[2020-05-04] MEDS: Ciprofloxacin 0.2% Otic (0.25ML CONTAINER) EA EAR SCH (10:37)
[2020-05-04 11:25] VITALS: BP 158/77; TEMP 98.7
== END 2020-05-04 17:31 | disposition home or self-care (01) | DRG 149 ==
LOC: T4-B 15:53 → OBSVTOIN 16:43
PROVIDERS: ADMIT Internal Medicine; ATTEND Internal Medicine
DX: R42 Dizziness and giddiness (principal); Z20.822 Contact with and (suspected) exposure to COVID-19; I10 Essential (primary) hypertension; M32.9 Systemic lupus erythematosus, unspecified; E55.9 Vitamin D deficiency, unspecified; M06.9 Rheumatoid arthritis, unspecified; R82.71 Bacteriuria; Z86.73 Personal history of transient ischemic attack (TIA), and cerebral infarction without residual deficits; Z90.710 Acquired absence of both cervix and uterus; Z79.899 Other long term (current) drug therapy; Z79.82 Long term (current) use of aspirin; D72.819 Decreased white blood cell count, unspecified; E86.0 Dehydration
CPT/HCPCS: 36415; 36416; 70450; 80048; 85025; 87635; 93880; U0003; U0005

== ENCOUNTER 2020-05-27 16:43 | Outpatient (CLI) | payer OTHER ==
[2020-05-28 01:53] LABS: SARS-CoV-2 PCR by NAA Not Detected (NotDetected)
== END 2020-05-27 16:44 | disposition home or self-care (01) ==
LOC: LABBT 16:43
PROVIDERS: ATTEND Internal Medicine Gastroenterology
DX: Z01.812 Encounter for preprocedural laboratory examination (principal); R13.10 Dysphagia, unspecified; Z20.822 Contact with and (suspected) exposure to COVID-19
CPT/HCPCS: 87635; U0003; U0005

== ENCOUNTER 2020-06-01 07:46 | Day surgery (SDC) | payer OTHER ==
[2020-05-31 10:01] VITALS: BMI 22.3
[2020-06-01] MEDS ORDERED: MD-Gastroview 120 ML BOT ONE (09:24)
[2020-06-01] MEDS ORDERED: PROPOFOL 200 MG/20 ML VIAL ONE (09:51)
== END 2020-06-01 13:40 | disposition home or self-care (01) ==
LOC: SDC 07:46
PROVIDERS: ATTEND Internal Medicine Gastroenterology
PROC: 0D758ZZ Dilation of Esophagus, Via Natural or Artificial Opening Endoscopic (ICD-10-PCS; principal; 2020-06-01)
DX: K22.2 Esophageal obstruction (principal); I10 Essential (primary) hypertension; K21.9 Gastro-esophageal reflux disease without esophagitis; E78.5 Hyperlipidemia, unspecified; Z79.82 Long term (current) use of aspirin; Z79.899 Other long term (current) drug therapy
CPT/HCPCS: 74220; 76000; J2704; Q9963

== ENCOUNTER 2020-06-18 06:57 | Day surgery (SDC) | payer OTHER ==
[2020-06-17 10:05] VITALS: BMI 22.3
[2020-06-18] MEDS ORDERED: PROPOFOL 200 MG/20 ML VIAL ONE (08:54)
== END 2020-06-18 10:10 | disposition home or self-care (01) ==
LOC: SDC 06:57
PROVIDERS: ATTEND Internal Medicine Gastroenterology
PROC: 0D758ZZ Dilation of Esophagus, Via Natural or Artificial Opening Endoscopic (ICD-10-PCS; principal; 2020-06-18)
DX: K22.2 Esophageal obstruction (principal); Z79.82 Long term (current) use of aspirin; Z79.899 Other long term (current) drug therapy
CPT/HCPCS: 74330; J2704

== ENCOUNTER 2021-03-03 09:34 | Outpatient (CLI) | payer MEDICARE | END 2021-03-03 09:35 | disposition home or self-care (01) | LOC: BICMAMMO 09:34 | PROVIDERS: ATTEND Family Medicine | DX: Z12.31 Encounter for screening mammogram for malignant neoplasm of breast (principal); Z13.820 Encounter for screening for osteoporosis; E89.40 Asymptomatic postprocedural ovarian failure; M81.0 Age-related osteoporosis without current pathological fracture; Z78.0 Asymptomatic menopausal state | CPT/HCPCS: 77063; 77067; 77080 ==

== ENCOUNTER 2021-04-14 12:41 | Outpatient (CLI) | payer MEDICARE ==
[2021-04-15 02:33] LABS: SARS-CoV-2 PCR by NAA Not Detected (NotDetected)
== END 2021-04-14 12:42 | disposition home or self-care (01) ==
LOC: LABBT 12:41
PROVIDERS: ATTEND Internal Medicine Gastroenterology
DX: R13.10 Dysphagia, unspecified (principal); Z20.822 Contact with and (suspected) exposure to COVID-19
CPT/HCPCS: U0003; U0005

== ENCOUNTER 2021-04-19 08:45 | Day surgery (SDC) | payer MEDICARE ==
[2021-04-11 14:44] VITALS: BMI 24.5
[2021-04-19] MEDS ORDERED: Lidocaine 1% PF 5 ML VIAL ONE (10:00)
[2021-04-19] MEDS ORDERED: PROPOFOL 200 MG/20 ML VIAL ONE (10:00)
== END 2021-04-19 12:00 | disposition home or self-care (01) ==
LOC: SDC 08:45
PROVIDERS: ATTEND Internal Medicine Gastroenterology
PROC: 0D718ZZ Dilation of Upper Esophagus, Via Natural or Artificial Opening Endoscopic (ICD-10-PCS; principal; 2021-04-19)
PROC: 0D748ZZ Dilation of Esophagogastric Junction, Via Natural or Artificial Opening Endoscopic (ICD-10-PCS; 2021-04-19)
DX: K22.2 Esophageal obstruction (principal); K21.9 Gastro-esophageal reflux disease without esophagitis; K44.9 Diaphragmatic hernia without obstruction or gangrene; I10 Essential (primary) hypertension; E78.5 Hyperlipidemia, unspecified; M19.90 Unspecified osteoarthritis, unspecified site; Z79.82 Long term (current) use of aspirin; Z79.899 Other long term (current) drug therapy; Z98.890 Other specified postprocedural states
CPT/HCPCS: 76000; J2704

== ENCOUNTER 2022-05-12 08:31 | Outpatient (CLI) | payer OTHER | END 2022-05-12 08:32 | disposition home or self-care (01) | LOC: BICMAMMO 08:31 | PROVIDERS: ATTEND Family Medicine | DX: Z12.31 Encounter for screening mammogram for malignant neoplasm of breast (principal) | CPT/HCPCS: 77063; 77067 ==

== ENCOUNTER 2022-12-29 08:51 | Day surgery (SDC) | payer OTHER ==
[2022-12-28 10:04] VITALS: BMI 20.7
[2022-12-29] MEDS ORDERED: PROPOFOL 200 MG/20 ML VIAL ONE (12:02)
== END 2022-12-29 13:18 | disposition home or self-care (01) ==
LOC: SDC 08:51
PROVIDERS: ATTEND Internal Medicine Gastroenterology
PROC: 0D758ZZ Dilation of Esophagus, Via Natural or Artificial Opening Endoscopic (ICD-10-PCS; principal; 2022-12-29)
DX: K22.2 Esophageal obstruction (principal); I10 Essential (primary) hypertension; E78.5 Hyperlipidemia, unspecified; M06.9 Rheumatoid arthritis, unspecified
CPT/HCPCS: J2704

== ENCOUNTER 2023-12-10 13:32 | Outpatient (CLI) | payer OTHER | END 2023-12-10 13:33 | disposition home or self-care (01) | LOC: BICMAMMO 13:32 | PROVIDERS: ATTEND Family Medicine | DX: Z12.31 Encounter for screening mammogram for malignant neoplasm of breast (principal); M85.88 Other specified disorders of bone density and structure, other site; M81.0 Age-related osteoporosis without current pathological fracture | CPT/HCPCS: 77063; 77067; 77080 ==

== ENCOUNTER 2023-12-25 07:52 | Outpatient (CLI) | payer OTHER ==
[2023-12-25] MEDS ORDERED: Iopamidol 370 76% 100 ML VIAL ONE (11:27)
== END 2023-12-25 07:53 | disposition home or self-care (01) ==
LOC: CT 07:52
PROVIDERS: ATTEND Internal Medicine
DX: D16.4 Benign neoplasm of bones of skull and face (principal); D72.818 Other decreased white blood cell count; I67.89 Other cerebrovascular disease
CPT/HCPCS: 70470; 82565; Q9967